=== PATIENT | female | born 1990 | race African-American/Black ===

== ENCOUNTER → 2017-03-15 | Outpatient (CLI) | payer OTHER | LOC: HPND 12:08 | DX: O26.893 Other specified pregnancy related conditions, third trimester (principal) | CPT/HCPCS: 76811; 76817 ==

== ENCOUNTER → 2017-04-12 | Outpatient (CLI) | payer OTHER | LOC: HPND 10:51 | DX: O34.83 Maternal care for other abnormalities of pelvic organs, third trimester (principal); N83.202 Unspecified ovarian cyst, left side | CPT/HCPCS: 76816; 76817 ==